=== PATIENT | male | born 1970 | race Caucasian/White ===

== ENCOUNTER 2016-12-10 12:26 | Emergency (ER) | payer MEDICAID, OTHER ==
[~2016-12-10] VITALS: Ht 180.3 cm; Wt 72.6 kg
[2016-12-10 13:05] LABS: BASO % 0.5 % (0.0-1.0); EOS % 0.7 % (0.0-3.0); LARGE UNSTAINED CELL # 0.2 K/mm3 (0.0-0.4); LYMPH # 2.5 K/mm3 (1.5-4.5); LYMPH % 33.6 % (24.0-44.0); MEAN CORPUSCULAR HEMOGLOBIN 31.5 pg (27.0-33.0); MEAN CORPUSCULAR HGB CONC 34.8 g/dl (32.0-36.5); MEAN CORPUSCULAR VOLUME 90.7 fl (80.0-96.0); MONO # 0.4 K/mm3 (0.0-0.8); MONO % 5.9 % (0.0-5.0); NEUTROPHILS # 4.2 K/mm3 (1.8-7.7); NEUTROPHILS % 56.3 % (36.0-66.0); PLATELET COUNT, AUTOMATED 151 k/mm3 (150-450); RED CELL DISTRIBUTION WIDTH 12.5 % (11.5-14.5); WHITE BLOOD COUNT 7.5 K/mm3 (4.0-10.0)
[2016-12-10 13:27] LABS: ANION GAP 5 MEQ/L (8-16); BLOOD UREA NITROGEN 15 MG/DL (7-18); CALCIUM LEVEL 9.4 MG/DL (8.5-10.1); CARBON DIOXIDE LEVEL 30 MEQ/L (21-32); CHLORIDE LEVEL 105 MEQ/L (98-107); CREATININE FOR GFR 0.89 MG/DL (0.70-1.30); GLOMERULAR FILTRATION RATE > 60.0 (>60); GLUCOSE, FASTING 72 MG/DL (70-105); SODIUM LEVEL 140 MEQ/L (136-145)
--- NOTE | 2016-12-10 13:53 | REP ---
Clinical: Chest pain . Comparison: 12/22/2010 . Findings: The mediastinum and cardiac silhouette are stable and within normal limits for portable technique. The lung molina are clear without acute consolidation, effusion, or pneumothorax. Skeletal structures are intact. Impression: Normal portable chest x-ray Signed by Eugene Andrew MD 12/10/2016 01:44 P
[2016-12-10 14:40] LABS: FOLATE 17.3 NG/ML (>5.4)
--- NOTE | 2016-12-10 15:03 | ECGEPIP ---
Stationary ECG Study [facility] - ED Test Date: 2016-12-10 Pat Name: MARIAM CHÁVEZ Department: Room: - Gender: M [employer]visor [employer]: : 1970 Requested By: Marylou Newsome Order Number: [id number] Reading MD: Jose Luis North Measurements Intervals [place] Rate: 60 P: 72 MD: 143 QRS: 68 QRSD: 91 T: 51 QT: 422 QTc: 422 Interpretive Statements SINUS RHYTHM WITH SINUS ARRHYTHMIA NO PRIORS Electronically Signed On 12-10-2016 15:03:08 EDT by Jose Luis North
[2016-12-10] MEDS ORDERED: ASPIRIN 81 MG CHEW TABLET PO ONE (17:15)
[2016-12-10] MEDS ORDERED: ASPI81CH32 PO (18:10)
[2016-12-10 18:37] VITALS: BP 112/75
[2016-12-12 00:10] LABS: Lyme Disease IgG/IgM Antibodie <0.91 ISR (0.00-0.90); Lyme Disease IgM Ab Quantitati <0.80 index (0.00-0.79)
--- NOTE | 2016-12-12 14:12 | ECGEPIP ---
Stationary ECG Study [facility] - ED Test Date: 2016-12-10 Pat Name: MARIAM CHÁVEZ Department: Room: - Gender: M [employer]: raquel : 1970 Requested By: Marylou Newsome Order Number: [id number] Reading MD: Marylou Newsome Measurements Intervals [place] Rate: 55 P: 47 NV: 131 QRS: 66 QRSD: 88 T: 50 QT: 425 QTc: 409 Interpretive Statements SINUS BRADYCARDIA SIMILAR 12/10/16 Electronically Signed On 12-12-2016 14:12:15 EDT by Marylou Newsome
== END 2016-12-10 18:52 | disposition home or self-care (01) ==
LOC: M ED 14:40
DX: R07.89 Other chest pain (principal); G62.9 Polyneuropathy, unspecified; F17.200 Nicotine dependence, unspecified, uncomplicated

== ENCOUNTER → 2017-01-07 | Outpatient (CLI) | payer OTHER ==
[~2017-01-07] MED LIST: ASPI81CH32 PO
== END ==
LOC: M RAD 09:02
PROVIDERS: ATTEND Internal Medicine Cardiovascular Disease
DX: R07.2 Precordial pain (principal); R00.1 Bradycardia, unspecified; R94.31 Abnormal electrocardiogram [ECG] [EKG]; G47.9 Sleep disorder, unspecified; Z87.891 Personal history of nicotine dependence

== ENCOUNTER → 2017-04-15 | Outpatient (CLI) | payer OTHER ==
--- NOTE | 2017-04-16 05:08 | REP ---
Clinical: Follow-up pulmonary nodule. Comparison: 01/07/2017. Findings: A 15 mm right lower lobe subpleural nodule (image 76) remains stable when compared to prior examination. An the bilateral lung molina are otherwise well aerated and essentially symmetric. No further significant consolidation, nodule or mass lesion appreciated. No pleural effusion/reaction or pneumothorax. Tracheobronchial tree is patent. No obvious adenopathy. Mediastinum demonstrates normal thoracic aorta and heart/pericardium by noncontrast evaluation. Limited evaluation of the upper abdomen demonstrates normal bilateral adrenal glands. Surrounding musculoskeletal structures are intact without focal osseous abnormality. Impression: 15 mm soft tissue nodule in the subpleural right lower lobe remains unchanged. PET-CT should again be considered and/or follow-up examination and 6-9 months. Signed by Eugene Andrew MD 04/16/2017 05:00 A
== END ==
LOC: M RAD 08:10
PROVIDERS: ATTEND Internal Medicine Pulmonary Disease
DX: R91.1 Solitary pulmonary nodule (principal)

== ENCOUNTER → 2017-10-14 | Outpatient (CLI) | payer OTHER | LOC: M RAD 09:02 | DX: R91.1 Solitary pulmonary nodule (principal) ==

== ENCOUNTER → 2018-02-24 | Outpatient (CLI) | payer OTHER ==
[2018-02-24 12:52] LABS: ALBUMIN 3.7 GM/DL (3.2-5.2); ALBUMIN/GLOBULIN RATIO 1.16 (1.00-1.93); ALKALINE PHOSPHATASE 76 U/L (45-117); ALT/SGPT 30 U/L (12-78); ANION GAP 7 MEQ/L (8-16); AST/SGOT 23 U/L (7-37); BILIRUBIN,TOTAL 0.4 MG/DL (0.2-1.0); BLOOD UREA NITROGEN 13 MG/DL (7-18); CALCIUM LEVEL 8.5 MG/DL (8.5-10.1); CARBON DIOXIDE LEVEL 26 MEQ/L (21-32); CHLORIDE LEVEL 109 MEQ/L (98-107); CHOLESTEROL LEVEL 158 MG/DL (<200); CHOLESTEROL RISK RATIO 4.937 (<5); CREATININE FOR GFR 0.87 MG/DL (0.70-1.30); GLOMERULAR FILTRATION RATE > 60.0 (>60); GLUCOSE, FASTING 96 MG/DL (70-100); HDL CHOLESTEROL 32 MG/DL (>40); LDL CHOLESTEROL 81.8 MG/DL (<100); NON-HDL-C 126 MG/DL; POTASSIUM SERUM 4.1 MEQ/L (3.5-5.1); SODIUM LEVEL 142 MEQ/L (136-145); TOTAL PROTEIN 6.9 GM/DL (6.4-8.2); TRIGLYCERIDES LEVEL 221 MG/DL (<150)
== END ==
LOC: M ADAMS 11:00
DX: M79.672 Pain in left foot (principal); M79.671 Pain in right foot; Z13.220 Encounter for screening for lipoid disorders
CPT/HCPCS: 80053

== ENCOUNTER 2018-11-11 21:54 | Emergency (ER) | payer OTHER ==
[~2018-11-11] VITALS: Ht 182.9 cm; Wt 81.8 kg
[~2018-11-11 21:54] MED LIST changes: -ASPI81CH32 PO; +ASPI81CH33 PO
[2018-11-11] MEDS ORDERED: IBUPROFEN 600 MG TAB PO ONE (22:15)
[2018-11-11] MEDS ORDERED: IBUP-1022 PO (22:45)
[2018-11-11 22:47] VITALS: BP 129/60
--- NOTE | 2018-11-12 08:38 | REP ---
Right rib series: Five views including PA chest. History: Injury in a fall. Comparison study: December 10, 2016. Findings: PA chest radiograph shows no evidence of pneumothorax or hydrothorax. No evidence of contusion or atelectasis. Mediastinum is not widened. Heart size is normal. Multiple views of the right ribcage demonstrate a 14 mm nodular opacity projecting in the right lung base below the dome of the diaphragm not visible on chest x-ray. This has been seen on serial chest CT studies. No right rib fracture is appreciated. No bony destructive lesion is seen. Impression: 1.5 cm nodular opacity in the right posterior pleural angle again seen unchanged from October 14, [address] Otherwise no active disease. No rib fracture is seen. Electronically Signed by Gregorio Rebolledo MD 11/12/2018 09:19 A
--- NOTE | 2018-11-13 13:19 | ED PDOC ---
Post-Departure Follow-Up johana paul faxed formal report of rib film for fu Mason Patel MD Nov 13, 2018 13:19
== END 2018-11-11 22:51 | disposition home or self-care (01) ==
LOC: M ED 21:54
DX: S22.31XA Fracture of one rib, right side, initial encounter for closed fracture (principal); W01.0XXA Fall on same level from slipping, tripping and stumbling without subsequent striking against object, initial encounter; Y92.018 Other place in single-family (private) house as the place of occurrence of the external cause; Z79.82 Long term (current) use of aspirin

== ENCOUNTER → 2018-12-22 | Outpatient (CLI) | payer OTHER ==
[~2018-12-22] MED LIST changes: +IBUP-1022 PO
--- NOTE | 2018-12-24 09:19 | REP ---
Clinical: Follow-up pulmonary nodule. Technique: Axial noncontrast images from the thoracic inlet to the upper abdomen with coronal and sagittal re-formations. Comparison: 10/14/2017, 01/07/2017. Findings: The bilateral lung molina are relatively well aerated and symmetric. The 15 mm subpleural nodule in the posterior right lower lobe is unchanged in size and now demonstrates small amount of central calcification consistent with chronic granuloma. No new pulmonary nodules and mass lesions are identified. No consolidation. No effusion. No pneumothorax. Tracheobronchial tree is patent. Mediastinum appears normal. No significant adenopathy. Surrounding musculoskeletal structures are intact. Impression: 1. Solitary pulmonary nodule in the posterior right lower lobe now demonstrates small central calcifications and consistent with chronic benign granuloma. 2. No significant mediastinal or pleuroparenchymal process otherwise appreciated. Electronically Signed by Eugene Andrew MD 12/24/2018 09:11 A
== END ==
LOC: M RAD 07:07
PROVIDERS: ATTEND Internal Medicine Pulmonary Disease
DX: R91.1 Solitary pulmonary nodule (principal)

== ENCOUNTER → 2019-05-08 | Outpatient (CLI) | payer OTHER ==
--- NOTE | 2019-05-08 19:37 | REP ---
Left rib series: Five views including PA chest. History: Pain. Question rib fracture coughing. Comparison radiographs are from November 11, 2018. Findings: Previously noted right lower lobe pulmonary nodule 1.5 cm in diameter is again noted in the right posterior pleural angle. This is unchanged from comparison CT study dated April 15, 2017. Lung molina are otherwise clear on a PA chest x-ray. Multiple views of the left rib cage show no visible rib fracture or bony destructive lesion. Impression: No acute disease. 1.5 cm noncalcified granuloma right lower lobe again seen. Electronically Signed by Gregorio Rebolledo MD 05/08/2019 07:54 P
== END ==
LOC: M ADAMS 17:21
PROVIDERS: ATTEND Physician Assistant Medical
DX: M54.6 Pain in thoracic spine (principal); J84.10 Pulmonary fibrosis, unspecified

== ENCOUNTER 2019-08-04 10:54 | Emergency (ER) | payer OTHER ==
[~2019-08-04] VITALS: Ht 180.3 cm; Wt 80.6 kg
[2019-08-04] MEDS ORDERED: FLUORESCEIN OPHTH 1 MG STRIP OS ONE (12:30)
[2019-08-04] MEDS ORDERED: TETRACAINE 0.5% OPHTH SOLN 4ML OS ONE (12:30)
[2019-08-04] MEDS ORDERED: TOBRSUS41 OS (13:14)
[2019-08-04 13:22] VITALS: BP 131/81
== END 2019-08-04 13:24 | disposition home or self-care (01) ==
LOC: M ED 10:54
DX: H10.9 Unspecified conjunctivitis (principal)

== ENCOUNTER → 2021-05-02 | Outpatient (REF) | payer OTHER ==
[~2021-05-02] MED LIST changes: +TOBRSUS41 OS
[2021-05-02 13:01] LABS: BASO % 0.5 % (0.0-1.0); EOS # 0.1 10^3/uL (0.0-0.5); EOS % 0.8 % (0.0-3.0); LYMPH # 1.6 10^3/uL (1.5-5.0); LYMPH % 25.8 % (24.0-44.0); MEAN CORPUSCULAR HEMOGLOBIN 29.9 pg (27.0-33.0); MEAN CORPUSCULAR VOLUME 87.9 fl (80.0-96.0); MONO # 0.5 10^3/uL (0.0-0.8); MONO % 8.7 % (2.0-8.0); NEUTROPHILS # 3.9 10^3/uL (1.5-8.5); NEUTROPHILS % 63.9 % (36.0-66.0); PLATELET COUNT, AUTOMATED 192 10^3/uL (150-450); RED BLOOD COUNT 5.35 10^6/uL (4.30-6.10); WHITE BLOOD COUNT 6.1 10^3/uL (4.0-10.0)
[2021-05-02 13:48] LABS: ALT/SGPT 28 U/L (12-78); BILIRUBIN,TOTAL 0.5 MG/DL (0.2-1.0); BLOOD UREA NITROGEN 13 MG/DL (7-18); CALCIUM LEVEL 9.3 MG/DL (8.5-10.1); CARBON DIOXIDE LEVEL 28 MEQ/L (21-32); CHLORIDE LEVEL 107 MEQ/L (98-107); CPK CREATINE PHOSPHOKINASE 123 U/L (39-308); CREATININE FOR GFR 0.82 MG/DL (0.70-1.30); FREE T4 1.04 NG/DL (0.76-1.46); GLOMERULAR FILTRATION RATE > 60.0 (>60); GLUCOSE, FASTING 98 MG/DL (70-100); MAGNESIUM LEVEL 1.9 MG/DL (1.8-2.4); POTASSIUM SERUM 4.2 MEQ/L (3.5-5.1); SODIUM LEVEL 140 MEQ/L (136-145); TOTAL PROTEIN 7.3 GM/DL (6.4-8.2)
[2021-05-02 13:49] LABS: TOTAL 25(OH) VITAMIN D 32.9 NG/ML (30.0-100.0); VITAMIN B12 LEVEL 588 PG/ML
[2021-05-02 13:57] LABS: FOLATE 15.7 NG/ML
[2021-05-03 16:09] LABS: Lyme Disease IgG/IgM Antibodie <0.91 ISR (0.00-0.90); Lyme Disease IgM Ab Quantitati <0.80 index (0.00-0.79)
== END ==
LOC: M SFHCADAM 11:27
PROVIDERS: ATTEND Physician Assistant
DX: R25.2 Cramp and spasm (principal)

== ENCOUNTER → 2023-07-10 | Outpatient (REF) | payer OTHER ==
[2023-07-10 16:59] LABS: HEMATOCRIT 45.4 % (42.0-52.0); HEMOGLOBIN 15.7 g/dl (13.5-17.5); MEAN CORPUSCULAR HEMOGLOBIN 30.2 pg (27.0-33.0); MEAN CORPUSCULAR HGB CONC 34.6 g/dl (32.0-36.5); MEAN CORPUSCULAR VOLUME 87.3 fl (80.0-96.0); PLATELET COUNT, AUTOMATED 212 10^3/uL (150-450); WHITE BLOOD COUNT 6.6 10^3/uL (4.0-10.0)
[2023-07-10 17:24] LABS: ALBUMIN 4.3 G/DL (3.2-5.2); ALKALINE PHOSPHATASE 68 U/L (46-116); ALT/SGPT 29 U/L (7.0-40); AST/SGOT 21 U/L (<34); BILIRUBIN,TOTAL 0.7 MG/DL (0.3-1.2); BLOOD UREA NITROGEN 13 MG/DL (9-23); CALCIUM LEVEL 9.8 MG/DL (8.5-10.1); CARBON DIOXIDE LEVEL 28 MMOL/L (20-31); CHLORIDE LEVEL 102 MMOL/L (98-107); CHOLESTEROL LEVEL 206 MG/DL (<200); CHOLESTEROL RISK RATIO 4.12 (<5); CREATININE FOR GFR 0.79 MG/DL (0.70-1.30); FREE T4 1.41 NG/DL (0.89-1.76); GLOMERULAR FILTRATION RATE > 60.0 (>56); GLUCOSE, FASTING 79 MG/DL (60-100); HDL CHOLESTEROL 49.9 MG/DL (>40); LDL CHOLESTEROL 132.5 MG/DL (<100); NON-HDL-C 156.1 MG/DL; POTASSIUM SERUM 4.3 MMOL/L (3.5-5.1); PSA SCREENING 0.61 NG/ML (< 4.00); SODIUM LEVEL 137 MMOL/L (136-145); THYROID STIMULATING HORMONE 1.754 uIU/ML (0.55-4.78); TOTAL PROTEIN 7.3 G/DL (5.7-8.2); TRIGLYCERIDES LEVEL 118 MG/DL (<150)
== END ==
LOC: M SFHCADAM 11:40
PROVIDERS: ATTEND Family Medicine
DX: F41.9 Anxiety disorder, unspecified (principal); F10.21 Alcohol dependence, in remission; Z13.220 Encounter for screening for lipoid disorders; Z12.5 Encounter for screening for malignant neoplasm of prostate

== ENCOUNTER → 2025-04-21 | Outpatient (REF) | payer OTHER ==
[~2025-04-21] MED LIST changes: -IBUP-1022 PO; +IBUP600T42 PO
[2025-04-21 18:27] LABS: PLATELET COUNT, AUTOMATED 228 10^3/uL (150-450)
[2025-04-21 18:42] LABS: ALT/SGPT 26 U/L (7.0-40); AST/SGOT 28 U/L (<34); CALCIUM LEVEL 9.6 MG/DL (8.5-10.1); CARBON DIOXIDE LEVEL 26 MMOL/L (20-31); CHLORIDE LEVEL 102 MMOL/L (98-107); CHOLESTEROL LEVEL 214 MG/DL (<200); CHOLESTEROL RISK RATIO 3.79 (<5); CREATININE FOR GFR 0.84 MG/DL (0.70-1.30); GLOMERULAR FILTRATION RATE > 90.0 (>56); LDL CHOLESTEROL 140.8 MG/DL (<100); NON-HDL-C 157.6 MG/DL; POTASSIUM SERUM 4.0 MMOL/L (3.5-5.1); PSA SCREENING 0.64 NG/ML (< 4.00); SODIUM LEVEL 138 MMOL/L (136-145); TRIGLYCERIDES LEVEL 84 MG/DL (<150)
[2025-04-21 18:45] LABS: FREE T4 1.34 NG/DL (0.89-1.76)
== END ==
LOC: M SFHCADAM 15:04
PROVIDERS: ATTEND Family Medicine
DX: R55 Syncope and collapse (principal); R00.1 Bradycardia, unspecified; Z13.220 Encounter for screening for lipoid disorders; Z12.5 Encounter for screening for malignant neoplasm of prostate
CPT/HCPCS: 80053; 80061; 84439; 84443; 85027; G0103

== ENCOUNTER → 2025-07-02 | Outpatient (CLI) | payer OTHER | LOC: M PLAIMG 12:40 | PROVIDERS: ATTEND Family Medicine | DX: R55 Syncope and collapse (principal); R00.1 Bradycardia, unspecified ==